=== PATIENT | male | born 1990 | race Caucasian/White ===

== ENCOUNTER 2021-03-02 13:01 | Emergency (ER) | payer OTHER, SELFPAY ==
--- NOTE | ~2021-03-02 | XR_ITS ---
EXAMINATION: XR hand RT min 3V EXAM DATE: 03/02/2021 14:40 INDICATION: pain rt 3rd distal metacarpal s/p inj 2 days ago. TECHNIQUE: Right hand frontal, lateral and oblique projections obtained and reviewed. There is no pr ior study for comparison. FINDINGS: Right metacarpal bones are unremarkable. There are no acute fractures or dislocations iden tified. There is no subcutaneous gas. There is soft tissue swelling metacarpal bones dorsally. The re are no radiopaque foreign bodies. IMPRESSION: No acute osseous findings. Reviewed, dictated and finalized at location A. [employer] IMPRESSION: No acute osseous findings.
[2021-03-02 13:12] VITALS: BP 137/86; PULSE 74; RESP 16; TEMP 37.2; O2SAT 99
--- NOTE | 2021-03-02 15:00 | ED.UPPEXIN ---
HPI - Extremity Injury (Upper) General Chief Complaint: Extremity Injury, Upper Stated Complaint: right hand pain Time Seen by Provider: 03/02/21 14:55 Source: patient and RN notes reviewed Mode of arrival: ambulatory Limitations: no limitations History of Present Illness HPI narrative: Patient presents today with an injury to his right hand. He was loading wood into the back of his truck a few days ago when he tripped and jammed his third finger. Reports pain to the base of the third finger with some tingling. Currently rates pain 5/10 and has been taking ibuprofen and applying ice. Pain increases with range of motion. MD complaint: injury to: right and hand Related Data Home Medications Medication Instructions Recorded Confirmed No Home Medications 03/02/21 03/02/21 Allergies Allergy/AdvReac Type Severity Reaction Status Date / Time No Known Allergies Allergy Verified 03/02/21 14:32 Review of Systems Review of Systems: CONSTITUTIONAL: Denies body aches, fever, chills, or sweats. EYES: Denies visual changes, redness, or discharge. ENT: Denies rhinorrhea, congestion, sore throat, or otalgia. CARDIOVASCULAR: Denies chest pain, palpitations, or edema. RESPIRATORY: Denies cough or dyspnea. GASTROINTESTINAL: Denies abdominal pain, nausea, vomiting, or diarrhea. GENITOURINARY: Denies dysuria or hematuria. SKIN: Denies rash, itching, or wounds. MUSCULOSKELETAL: Denies back pain, or myalgia. + Right hand injury NEUROLOGIC: Denies headache, numbness, tingling, or weakness. PSYCH: Denies depression or anxiety. PMFSH Comments At time of signature, I have reviewed and agree with nursing past medical, surgical, social and family history unless otherwise noted. Please see nursing chart for further information. There is no relevant family history pertinent to the presenting complaint Exam Narrative: GENERAL: Well-appearing, well-nourished, and in no acute distress. HEAD: Normocephalic, atraumatic. EYES: EOMI. No redness or drainage. Conjunctivae normal. ENT: Mucous membranes pink and moist. NECK: Normal AROM. CHEST: No respiratory distress. EXTREMITIES: Right hand: Right third finger at the MCP is swollen and ecchymotic, and tender to palpation. Pain increases with range of motion at this joint as well. Distal sensation intact. Capillary refill normal. Radial pulse normal. SKIN: Warm, dry, no rash. Capillary refill normal. Normal skin turgor. NEURO: No focal deficits. Alert and oriented x3. Gait steady. PSYCH: Normal affect. No signs of depression or anxiety. Course Vital Signs Vital signs: Vital Signs Temperature 98.9 F 03/02/21 13:12 Pulse Rate 74 03/02/21 13:12 Respiratory Rate 16 03/02/21 13:12 Blood Pressure 137/86 03/02/21 13:12 Pulse Oximetry 99 03/02/21 13:12 Temperature 98.9 F 03/02/21 13:12 Pulse Rate 74 03/02/21 13:12 Respiratory Rate 16 03/02/21 13:12 Blood Pressure 137/86 03/02/21 13:12 Pulse Oximetry 99 03/02/21 13:12 Reviewed. Pt has been instructed to follow up with his PCP regarding his elevated blood pressure today. MDM - Extremity Injury (Upper) Differential Diagnosis Differential diagnosis: Likely finger sprain, fracture of hand and other (Finger fracture, dislocation, contusion) Imaging Data Radiologist's impression: ITS Impressions Hand X-Ray 03/02/21 14:42 IMPRESSION: No acute osseous findings. Critical Care Time Critical Care Time Critical Care Time: No Discharge Plan Discharge Clinical Impression: Finger sprain Qualifiers: Encounter type: initial encounter Finger: middle finger Sprain of finger site: metacarpophalangeal joint Laterality: right Qualified Code(s): S63.652A - Sprain of metacarpophalangeal joint of right middle finger, initial encounter Patient Disposition: Home, Self-Care Condition: Stable Instructions: Finger Sprain (ED) Additional Instructions: Your x-ray is negative for fracture
== END 2021-03-02 15:23 | disposition home or self-care (01) ==
PROVIDERS: Emergency Provider Nurse Practitioner
DX: S63.652A Sprain of metacarpophalangeal joint of right middle finger, initial encounter (principal); W01.0XXA Fall on same level from slipping, tripping and stumbling without subsequent striking against object, initial encounter
CPT/HCPCS: 73130; 99213; G0463